=== PATIENT | female | born 1990 | race Caucasian/White ===

== ENCOUNTER 2018-11-13 16:45 | Emergency (ER) | payer MEDICAID, OTHER ==
[2018-11-13 17:42] VITALS: BP 102/52
--- NOTE | 2018-11-13 18:23 | UC ---
Complaint Female HPI - HPI Summary HPI Summary: Patient has recurring bacterial vaginosis. Her was away from home for over one week and then came back and she had sexual intercourse several times and since then she has had some yellow foul-smelling vaginal discharge. She is in a monogamous relationship and has no history of sexually transmitted diseases other than the BV - History Of Current Complaint Chief Complaint: UCGeneralIllness Stated Complaint: PERSONAL Time Seen by Provider: 11/13/18 17:53 Hx Obtained From: Patient Hx Last Menstrual Period: 10/2018 ?: No Onset/Duration: Gradual Onset Timing: Constant Severity Initially: Mild Severity Currently: Mild Pain Intensity: 5 Pain Scale Used: 0-10 Numeric Character: Burning Aggravating Factor(s): Aldie Alleviating Factor(s): Nothing Associated Signs And Symptoms: Positive: Vaginal Discharge - Vaginal discharge, foul-smelling. Patient states it seems like her bacterial vaginosis has returned. - Allergies/Home Medications Allergies/Adverse Reactions: Allergies Allergy/AdvReac Type Severity Reaction Status Date / Time No Known Allergies Allergy Verified 11/13/18 17:37 PMH/Surg Hx/FS Hx/Imm Hx Previously Healthy: Yes - Surgical History Surgical History: Yes Surgery Procedure, Year, and Place: tooth extraction . cataracts 10/2018 - Family History Known Family History: Positive: Non-Contributory - Social History Alcohol Use: Rare Substance Use Type: None Smoking Status (MU): Never Smoked Tobacco Review of Systems All Other Systems Reviewed And Are Negative: Yes Genitourinary: Positive: Negative, Vaginal/Penile Burning, Vaginal/Penile Discharge Physical Exam Triage Information Reviewed: Yes Appearance: Well-Appearing, No Pain Distress, Well-Nourished Vital Signs: Initial Vital Signs Temp 97.2 F 11/13/18 17:37 Pulse 88 11/13/18 17:37 Resp 17 11/13/18 17:37 BP 102/52 11/13/18 17:37 Pulse Ox 99 11/13/18 17:37 Vital Signs Reviewed: Yes Respiratory: Positive: Lungs clear, Normal breath sounds, No respiratory distress, No accessory muscle use Cardiovascular: Positive: RRR, No Murmur, Pulses Normal, Brisk Capillary Refill Abdomen Description: Positive: Nontender, No Organomegaly, Soft Bowel Sounds: Positive: Present Pelvic Exam: Positive: External Exam Normal, No Cerv. Motion Tender, Discharge - Yellowish-white vaginal discharge.. Negative: Tender w/ Cervical Motion, Tender Adnexa, Tender Uterus Musculoskeletal Exam: Normal Neurological Exam: Normal Psychological Exam: Normal Complaint Female Dx - Course Course Of Treatment: She is comfortable here. Pelvic exam was done. I believe at this time she does not have pelvic inflammatory disease but does probably have bacterial vaginosis. GC chlamydia cultures were done as well as affirm swab. - Differential Dx/Diagnosis Provider Diagnosis: Bacterial vaginosis Discharge - Sign-Out/Discharge Documenting (check all that apply): Patient Departure All imaging exams completed and their final reports reviewed: No Studies - Discharge Plan Condition: Fair Disposition: HOME Prescriptions: metroNIDAZOLE * [Flagyl] 500 mg PO BID 7 Days #14 tablet Patient Education Materials: Bacterial Vaginosis (ED) Referrals: Lesa Faye MD [Primary Care Provider] - Additional Instructions: We will call you with the culture reports over the next 2 days. Definite follow -up with your primary care provider if symptoms worsen. - Billing Disposition and Condition Condition: FAIR Disposition: Home
--- NOTE | 2018-11-15 12:23 | UC ---
- Progress Note Progress Note: RN to call pt - negative gardnerella, negative kate. 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 Course/Dx - Diagnoses Provider Diagnoses: Bacterial vaginosis Discharge - Sign-Out/Discharge Documenting (check all that apply): Post-Discharge Follow Up All imaging exams completed and their final reports reviewed: No Studies - Discharge Plan Condition: Fair Disposition: HOME Prescriptions: metroNIDAZOLE * [Flagyl] 500 mg PO BID 7 Days #14 tablet Patient Education Materials: Bacterial Vaginosis (ED) Referrals: Lesa Faye MD [Primary Care Provider] - Additional Instructions: We will call you with the culture reports over the next 2 days. Definite follow -up with your primary care provider if symptoms worsen. - Billing Disposition and Condition Condition: FAIR Disposition: Home
[2018-11-15 12:25] LABS: Neisseria gonorrhoeae (GC) RNA Negative (Negative)
[2018-11-15 12:45] LABS: Trichomonas vaginalis Result Negative (Negative)
== END 2018-11-13 18:20 | disposition home or self-care (01) ==
LOC: UCCORT 16:45
DX: N76.0 Acute vaginitis (principal)
CPT/HCPCS: 87480; 87491; 87510; 87591; 87661; 99212; G0463